=== PATIENT | male | born 1950 | race Caucasian/White ===

== ENCOUNTER 2017-05-01 19:45 | Observation (INO) ==
--- NOTE | 2017-05-01 19:51 | Emergency Department Note ---
Disposition Clinical Impression: Encounter for care of pacemaker Disposition: Admitted As Inpatient Condition: Good Referrals: Janneth Macias, FRAME ASSEMBLER [Primary Care Provider] - Forms: ED Satisfaction Letter, Work/School Release Chest Pain HPI - General Chief Complaint: ED General Medical Stated Complaint: shocked by pacemaker Time Seen by Provider: 05/01/17 19:49 Source: patient, EMS Mode of arrival: EMS Limitations: no limitations Vital Signs Reviewed: Yes Nursing Notes Reviewed: Yes - History of Present Illness HPI Narrative: patient states he took the trash out this evening, and when came in to sit on the couch, his pacemaker fired. he states it only fired one time. he states he felt fine before and after the event. this pacemaker/def was recently place.d his chaplain is Dr Sarabia, in [place]. he states he has not recently been ill. - Related Data Home Medications Medication Instructions Recorded Confirmed Aspirin Enteric Coated [Aspirin EC] 81 mg PO DAILY 12/24/15 05/01/17 Cholecalciferol (Vitamin D3) 10,000 unit PO DAILY 12/24/15 05/01/17 [Vitamin D3] Clopidogrel [Plavix] 75 mg PO DAILY 12/24/15 05/01/17 Fenofibrate Nanocrystallized 145 mg PO HS 12/24/15 05/01/17 [Tricor] Glimepiride [Amaryl] 2 mg PO DAILY 12/24/15 05/01/17 Isosorbide MONOnitrate (24 HR) 60 mg PO DAILY 12/24/15 05/01/17 [Imdur] Losartan [Cozaar] 25 mg PO DAILY 12/24/15 05/01/17 Metoprolol [Lopressor] 25 mg PO BID 12/24/15 05/01/17 Nitroglycerin [Nitrostat] 0.4 mg SL Q5M PRN 12/24/15 05/01/17 OxyCODONE/APAP 5/325 [Percocet 1 each PO Q6HR PRN 12/24/15 05/01/17 5/325 MG] RX: Garlic 300 mg PO DAILY 12/24/15 05/01/17 RX: Mexiletine [Mexitil] 150 mg PO BID 12/24/15 05/01/17 Ranolazine [Ranexa] 1,000 mg PO DAILY 12/24/15 05/01/17 Simvastatin [Zocor] 40 mg PO HS 12/24/15 05/01/17 Sucralfate [Carafate] 1 gm PO QIDAC 12/24/15 05/01/17 Clopidogrel [Plavix] 75 mg PO DAILY 05/01/17 05/01/17 Previous Rx's Medication Instructions Recorded RX: Hydrocortisone 2.5% CREAM 1 appl TP BID #1 tube 03/05/17 [Cortaid] Allergies Allergy/AdvReac Type Severity Reaction Status Date / Time amiodarone Allergy See Verified 05/01/17 19:56 Comments All systems ED: reviewed and negative except as stated. Review of Systems: As Per HPI Chest Pain PMH - Past Medical History Medical history: Reports: arthritis, cardiomyopathy, COPD, coronary artery disease, diabetes, GERD, hyperlipidemia, hypertension, myocardial infarction Surgical history: Reports: angioplasty/stent, pacemaker/AICD, other Psychiatric history: Reports: no psych history - Social History Smoking Status: Current every day smoker Alcohol use: Reports: none Drug use: Reports: none Physical Exam General: NAD, VSS Head: normocephalic, atraumatic Neck: NO CLA, Supple Chest wall: normal rise, no creptius, no deformity noted Lungs: CTAB Heart: RRR, no murmur Abd: soft, nontender, BS normal : deferred MSK: strength equal in all four extremities Ext: moves all four extremities, no obvious deformities Skin: cap refill normal, warm, dry Psych: normal affect, not anxious Course Course Narrative: EKG interpreted by myself as a paced rhythm at a rate of 60 no acute findings 2118 Patient has been monitored here in the department for over an hour he has had the occasional PVC but no dysrhythmia. We will get a call to [employer] to have his pacemaker interrogated that we have not heard back as to when they will be coming to do that. His first troponin and EKG are unrevealing. Discussed with the patient that I do think that he needs to be interrogated tonight. We will try talking first with the hospitalist to keep him here and have the interrogation here. He can be on telemetry and then transferred if needed. 2134: dr beltran agreed to obs patient overnight, as long as we set up the [employer]. [employer] was paged by staff scientist already, waiting for them to call us back. Patient comfortable with plan. Vital Signs Temperature 97.9 F 05/01/17 19:46 Pulse Rate 64 05/01/17 19:46 Respiratory Rate 16 05/01/17 19:46 Blood Pressure 154/80 05/01/17 19:46 O2 Sat by Pulse Oximetry 96 05/01/17 19:46 Temperature 97.9 F 05/01/17 20:07 Pulse Rate 62 05/01/17 20:07 Respiratory Rate 15 05/01/17 20:07 Blood Pressure 142/81 05/01/17 20:07 O2 Sat by Pulse Oximetry 96 05/01/17 20:07 Oxygen Delivery Oxygen Delivery Room Air Chest Pain - Medical Records Medical records reviewed: Yes I reviewed the patient's medical records. - Lab Data Lab results reviewed: Yes I reviewed the patient's lab results. Result diagrams: 05/01/17 20:17 05/01/17 20:17 Lab Results 05/01/17 05/01/17 05/01/17 Range/Units 20:17 20:17 20:17 WBC 9.8 (4.3-11.1) K/mcL RBC 4.56 (4.19-5.50) M/mcL Hgb 15.0 (12.9-16.9) g/dL Hct 42.7 (37.5-50.1) % MCV 93.6 (83.0-100.0) fL MCH 32.9 (28.0-33.3) pg MCHC 35.1 (31.6-35.5) g/dL RDW 13.2 (11.5-14.5) % Plt Count 239 (140-400) K/mcL MPV 10.8 (9.4-12.4) fL Immature Gran % 0.3 (0-4) % Seg Neutrophils % 48.4 % Lymphocytes % 33.9 % Monocytes % 11.7 % Eosinophils % 5.1 % Basophils % 0.6 % Neutrophils # 4.8 (1.6-8.9) K/mcL Lymphocytes # 3.3 (0.6-4.6) K/mcL Monocytes # 1.2 (0.0-1.3) K/mcL Eosinophils # 0.5 (0.0-0.6) K/mcL Basophils # 0.1 (0.0-0.2) K/mcL PT 12.1 (9.4-12.1) Seconds INR 1.1 APTT 31.9 (26.0-36.0) Seconds Sodium 139 (136-145) mEq/L Potassium 4.4 (3.5-4.5) mEq/L Chloride 105 (98-109) mEq/L Carbon Dioxide 24 (19-29) mEq/L BUN 23 (8-26) mg/dL Creatinine 0.89 (0.72-1.25) mg/dL Est GFR ( Amer) > 60 (> 60) Est GFR (Non-Af Amer) > 60 (> 60) BUN/Creatinine Ratio 26 (6-26) Glucose 130 H (70-99) mg/dL Calculated Osmolality 293 (280-300) Calcium 9.9 (8.6-10.8) mg/dL Magnesium (1.6-2.6) mg/dL Troponin I (0-0.03) ng/mL 05/01/17 05/01/17 Range/Units 20:17 20:17 WBC (4.3-11.1) K/mcL RBC (4.19-5.50) M/mcL Hgb (12.9-16.9) g/dL Hct (37.5-50.1) % MCV (83.0-100.0) fL MCH (28.0-33.3) pg MCHC (31.6-35.5) g/dL RDW (11.5-14.5) % Plt Count (140-400) K/mcL MPV (9.4-12.4) fL Immature Gran % (0-4) % Seg Neutrophils % % Lymphocytes % % Monocytes % % Eosinophils % % Basophils % % Neutrophils # (1.6-8.9) K/mcL Lymphocytes # (0.6-4.6) K/mcL Monocytes # (0.0-1.3) K/mcL Eosinophils # (0.0-0.6) K/mcL Basophils # (0.0-0.2) K/mcL PT (9.4-12.1) Seconds INR APTT (26.0-36.0) Seconds Sodium (136-145) mEq/L Potassium (3.5-4.5) mEq/L Chloride (98-109) mEq/L Carbon Dioxide (19-29) mEq/L BUN (8-26) mg/dL Creatinine (0.72-1.25) mg/dL Est GFR ( Amer) (> 60) Est GFR (Non-Af Amer) (> 60) BUN/Creatinine Ratio (6-26) Glucose (70-99) mg/dL Calculated Osmolality (280-300) Calcium (8.6-10.8) mg/dL Magnesium 1.9 (1.6-2.6) mg/dL Troponin I 0.00 (0-0.03) ng/mL - Radiology Data Radiology results reviewed: Yes I reviewed the patient's radiology results. - EKG Data EKG attestation: Yes I reviewed and interpreted this EKG. Heart Score - Score History: Moderately Suspicious EKG: Normal Age: Greater than 65 Risk Factors: 1-2 risk factors Troponin: Less than normal limit HEART Score Total: 4
[2017-05-01] MEDS ORDERED: Aspirin 81 MG TAB.CHEW PO ONE (20:04)
[2017-05-01 20:27] LABS: Basophils # 0.1 K/mcL (0.0-0.2); Basophils % 0.6 %; Eosinophils # 0.5 K/mcL (0.0-0.6); Eosinophils % 5.1 %; Hematocrit 42.7 % (37.5-50.1); Immature Granulocytes % 0.3 % (0-4); Lymphocytes # 3.3 K/mcL (0.6-4.6); Lymphocytes % 33.9 %; Mean Corpuscular HGB Conc 35.1 g/dL (31.6-35.5); Mean Corpuscular Hemoglobin 32.9 pg (28.0-33.3); Mean Corpuscular Volume 93.6 fL (83.0-100.0); Mean Platelet Volume 10.8 fL (9.4-12.4); Monocytes # 1.2 K/mcL (0.0-1.3); Monocytes % 11.7 %; Neutrophils # 4.8 K/mcL (1.6-8.9); Platelet Count 239 K/mcL (140-400); Red Blood Count 4.56 M/mcL (4.19-5.50); Red Cell Distribution Width 13.2 % (11.5-14.5); Segmented Neutrophils % 48.4 %
[2017-05-01 20:33] LABS: INR 1.1; Prothrombin Time 12.1 Seconds (9.4-12.1)
[2017-05-01 20:35] LABS: Activated Partial Thrombo Time 31.9 Seconds (26.0-36.0)
[2017-05-01 20:43] LABS: BUN/Creatinine Ratio 26 (6-26); Blood Urea Nitrogen 23 mg/dL (8-26); Calcium 9.9 mg/dL (8.6-10.8); Carbon Dioxide 24 mEq/L (19-29); Chloride 105 mEq/L (98-109); Glucose 130 mg/dL (70-99); Osmolality,Calculated 293 (280-300); Potassium 4.4 mEq/L (3.5-4.5); Sodium 139 mEq/L (136-145); eGFR For African Americans > 60 (> 60); eGFR For Non-African Americans > 60 (> 60)
[2017-05-01] MEDS ORDERED: Naloxone 0.4 MG/ML INJ IVP PRN (22:08)
[2017-05-01] MEDS ORDERED: Nitroglycerin 0.4 MG TAB.SUBL SL PRN (22:08)
[2017-05-01] MEDS ORDERED: *HR* OxyCODONE/APAP 5/325 TABLET PO PRN (22:08)
[2017-05-02 06:38] VITALS: BP 130/76
[2017-05-02] MEDS: Sucralfate 1 GM TABLET PO SCH ×2 (07:44→08:03)
[2017-05-02 08:47] LABS: BUN/Creatinine Ratio 22 (6-26); Blood Urea Nitrogen 19 mg/dL (8-26); Calcium 9.4 mg/dL (8.6-10.8); Carbon Dioxide 23 mEq/L (19-29); Chloride 107 mEq/L (98-109); Chol/HDL Ratio 5.6 (0-4.9); Cholesterol 151 mg/dL (< 200); Glucose 188 mg/dL (70-99); HDL Cholesterol 27 mg/dL (40-59); LDL Cholesterol,Calculated 55 mg/dL (0-99); Osmolality,Calculated 297 (280-300); Potassium 4.1 mEq/L (3.5-4.5); Sodium 140 mEq/L (136-145); Triglycerides 344 mg/dL (< 150); eGFR For African Americans > 60 (> 60); eGFR For Non-African Americans > 60 (> 60)
[2017-05-02] MEDS ORDERED: GARLIC 300 MG PO SCH (09:00)
[2017-05-02] MEDS ORDERED: Fenofibrate 54 MG TABLET PO SCH ×2 (09:00→21:00)
[2017-05-02] MEDS ORDERED: Aspirin Enteric Coated 81 MG Tablet PO SCH ×2 (09:00→21:00)
[2017-05-02] MEDS ORDERED: Isosorbide MONOnitrate (24 HR) 60 MG TAB.ER.24H PO SCH ×2 (09:00→12:00)
[2017-05-02] MEDS ORDERED: Ranolazine 500 MG TAB.ER.12H PO SCH (09:00)
[2017-05-02] MEDS ORDERED: *HR* Glimepiride 2 MG TABLET PO SCH (09:00)
[2017-05-02] MEDS ORDERED: Cholecalciferol (D-3) 1,000 UNIT TABLET PO SCH (09:00)
[2017-05-02 09:50] LABS: Basophils # 0.1 K/mcL (0.0-0.2); Basophils % 0.6 %; Eosinophils # 0.6 K/mcL (0.0-0.6); Eosinophils % 6.1 %; Hemoglobin 15.4 g/dL (12.9-16.9); Immature Granulocytes % 0.3 % (0-4); Lymphocytes # 2.5 K/mcL (0.6-4.6); Lymphocytes % 26.8 %; Mean Corpuscular HGB Conc 34.2 g/dL (31.6-35.5); Mean Corpuscular Hemoglobin 32.2 pg (28.0-33.3); Mean Corpuscular Volume 94.1 fL (83.0-100.0); Monocytes % 10.7 %; Neutrophils # 5.2 K/mcL (1.6-8.9); Platelet Count 218 K/mcL (140-400); Red Blood Count 4.78 M/mcL (4.19-5.50); Red Cell Distribution Width 13.2 % (11.5-14.5); Segmented Neutrophils % 55.5 %
--- NOTE | 2017-05-02 11:21 | Internal Med History&Physical ---
Date of Encounter: 05/02/17 Time of Encounter: 10:45 Assessment and Plan (1) Defibrillator discharge Current visit: Yes Status: Acute He has been admitted to [facility] floor observation status. He will be monitored on telemetry. Repeat cardiac enzymes were ordered. Internal Medicine - H&P: HPI Chief complaint: Defibrillator shock Admitted From: Home Plans for Post Hospital Care: Home History of present illness: Mr. Goodman is a 67 year old male who came to emergency room stating he had received a single shock from his defibrillator while sitting on his couch at leisure approximately 7 PM. He had no chest pain, lightheadedness or other symptoms prior to the shock. He decided to come to emergency room for further evaluation. He was admitted to [facility] for observation. He reports his present ICD was placed approximately 1 year ago. He had 2 previous defibrillators. He is uncertain of the diagnosis requiring the ICD placements. His last shock was over one year ago prior to implantation of this ICD. He reports a total of 4 shocks since initial ICD placement. He reports a past cardiac ablation procedure done but does not know details. His cardiovascular history significant for hypertension. He has known ASHD status post 4 MIs with most recent OR approximately 2001. He has had a total of 4 stents placed. His last heart catheter was approximately 2013 at [facility] without further intervention done. He has not used Nitrostat in approximately 5 years. He denies heart failure DVT or pulmonary embolus. Past Med Surg Social Fam HX - Past Medical History Medical history: arthritis, cardiomyopathy, COPD, coronary artery disease, diabetes, GERD, hyperlipidemia, hypertension, myocardial infarction Psychiatric history: no psych history - Past Surgical History Surgical History: angioplasty/stent, pacemaker/AICD, other - Social History Smoking Status: Current every day smoker Packs per day: 1 Smokeless Tobacco Status: No Alcohol use: none Drug use: none Internal Medicine - H&P: Meds Aspirin Enteric Coated [Aspirin EC] 81 mg PO DAILY 12/24/15 [History] Cholecalciferol (Vitamin D3) [Vitamin D3] 10,000 unit PO DAILY 12/24/15 [History ] Clopidogrel [Plavix] 75 mg PO DAILY 12/24/15 [History] Fenofibrate Nanocrystallized [Tricor] 145 mg PO HS 12/24/15 [History] Garlic 300 mg PO DAILY 12/24/15 [History] Glimepiride [Amaryl] 2 mg PO DAILY 12/24/15 [History] Isosorbide MONOnitrate (24 HR) [Imdur] 60 mg PO DAILY 12/24/15 [History] Losartan [Cozaar] 25 mg PO DAILY 12/24/15 [History] Metoprolol [Lopressor] 25 mg PO BID 12/24/15 [History] Mexiletine [Mexitil] 150 mg PO BID 12/24/15 [History] Nitroglycerin [Nitrostat] 0.4 mg SL Q5M PRN 12/24/15 [History] OxyCODONE/APAP 5/325 [Percocet 5/325 MG] 1 each PO Q6HR PRN 12/24/15 [History] Ranolazine [Ranexa] 1,000 mg PO DAILY 12/24/15 [History] Simvastatin [Zocor] 40 mg PO HS 12/24/15 [History] Sucralfate [Carafate] 1 gm PO QIDAC 12/24/15 [History] Hydrocortisone 2.5% CREAM [Cortaid] 1 appl TP BID #1 tube 03/05/17 [Rx] Clopidogrel [Plavix] 75 mg PO DAILY 05/01/17 [History] 3 Allergy/AdvReac Type Severity Reaction Status Date / Time amiodarone Allergy See Verified 05/01/17 19:56 Comments All Systems PM: A 10-system review of systems was performed and is negative for pertinent findings except as documented above in the HPI. Review of systems: Gen.: He states his weight has been stable past few months Cardiovascular: As per history of present illness Respiratory: He smoked since age 17 up to 2 packs per day. He has not been diagnosed with chronic lung disease and does not use home oxygen. He has had negative testing for NARDA. GI: He had esophageal stricture dilatation 12/24/2015 and has had no further dysphagia. He has minimal GERD symptoms. He denies disorders of his liver gallbladder or exocrine pancreas. : No history of hematuria dysuria or kidney stones Neurologic: He denies large distribution strokes or seizures. Endocrine: He was diagnosed with DM 2 approximately 5 years ago. He has hyperlipidemia but no known thyroid disease. Hematology/oncology: He denies blood disorders cancers or anemia Psychiatric: He denies anxiety depression or other mental health issues Musk skeletal: He has DJD and chronic low back pain. He denies gout. - Constitutional Vitals: Temp Pulse Resp BP Pulse Ox 97.9 F 59 18 130/76 94 05/02/17 06:34 05/02/17 06:34 05/02/17 06:34 05/02/17 06:34 05/02/17 06:34 Exam: Gen.: He is a well-developed well-nourished male lying quietly in bed who appears in no acute distress HEENT: Head is atraumatic and normocephalic. Eyes: EOMI. There is no scleral icterus. Mouth: Mucosa is moist. Neck: Supple and nontender. There is no thyromegaly or adenopathy noted. Heart: Regular without murmurs gallops or ectopics Lungs: No wheezes or crackles are heard. Abdomen: Soft and nontender. No masses or guarding are noted. Extremities: He has tinea pedis bilaterally. Dorsalis pedis and posterior tibial pulses are trace palpable bilaterally. He has minimal DJD changes of his hands. Neurologic: Mental status: He is talkative and a good historian. Cranial nerves : Smile is symmetric. Forehead wrinkles bilaterally. Tongue protrudes midline. EOMI. Motor: There is no pronator drift. Cerebellar: Finger to nose is intact bilaterally. Skin: Warm and dry. Internal Med - H&P Results - Labs CBC & Chem 7: 05/02/17 08:15 05/02/17 08:15 Labs: Short CBC 05/02/17 Range/Units 08:15 WBC 9.3 (4.3-11.1) K/mcL Hgb 15.4 (12.9-16.9) g/dL Hct 45.0 (37.5-50.1) % Plt Count 218 (140-400) K/mcL Neutrophils # 5.2 (1.6-8.9) K/mcL BMP 05/02/17 08:15 Sodium 140 Potassium 4.1 Chloride 107 Carbon Dioxide 23 BUN 19 Creatinine 0.86 Glucose 188 H Calcium 9.4 Cardiac Enzymes 05/02/17 05/02/17 Range/Units 04:38 08:15 Troponin I 0.01 0.00 (0-0.03) ng/mL
--- NOTE | 2017-05-02 11:35 | Discharge Summary ---
Date of Encounter: 05/02/17 Time of Encounter: 10:45 - Discharge Diagnosis (1) Defibrillator discharge Priority: Primary Status: Acute - Discharge Medications Home Medications: Aspirin Enteric Coated [Aspirin EC] 81 mg PO DAILY 12/24/15 [History] Cholecalciferol (Vitamin D3) [Vitamin D3] 10,000 unit PO DAILY 12/24/15 [History ] Clopidogrel [Plavix] 75 mg PO DAILY 12/24/15 [History] Fenofibrate Nanocrystallized [Tricor] 145 mg PO HS 12/24/15 [History] Garlic 300 mg PO DAILY 12/24/15 [History] Glimepiride [Amaryl] 2 mg PO DAILY 12/24/15 [History] Isosorbide MONOnitrate (24 HR) [Imdur] 60 mg PO DAILY 12/24/15 [History] Losartan [Cozaar] 25 mg PO DAILY 12/24/15 [History] Metoprolol [Lopressor] 25 mg PO BID 12/24/15 [History] Mexiletine [Mexitil] 150 mg PO BID 12/24/15 [History] Nitroglycerin [Nitrostat] 0.4 mg SL Q5M PRN 12/24/15 [History] OxyCODONE/APAP 5/325 [Percocet 5/325 MG] 1 each PO Q6HR PRN 12/24/15 [History] Ranolazine [Ranexa] 1,000 mg PO DAILY 12/24/15 [History] Simvastatin [Zocor] 40 mg PO HS 12/24/15 [History] Hydrocortisone 2.5% CREAM [Cortaid] 1 appl TP BID #1 tube 03/05/17 [Rx] Clopidogrel [Plavix] 75 mg PO DAILY 05/01/17 [History] Allergies/Adverse Reactions: 3 Allergy/AdvReac Type Severity Reaction Status Date / Time amiodarone Allergy See Verified 05/01/17 19:56 Comments Date of admission: 05/01/17 21:39 Primary care physician: Janneth Macias CNP - Patient Status Disposition: Home, Self-Care Condition: Good Functional capacity at discharge: independent ambulation Overall status at discharge: patient is back to baseline - Discharge Instructions Follow Up With: Janneth Macias CNP [Primary Care Provider] - 1 week - Diet and Activity Activity: resume usual activities as tolerated Diet: advance to your usual diet Hospital course: Mr. Goodman is a 67 year old male who came to emergency room stating he had received a single shock from his defibrillator while sitting on his couch at leisure approximately 7 PM. He had no chest pain, lightheadedness or other symptoms prior to the shock. He decided to come to emergency room for further evaluation. He was admitted to [facility] for observation. Initial orders were written by the emergency room physician. I saw him the morning of May 02 and performed a history and physical and discharge. Repeat cardiac enzymes showed no evidence of myocardial damage. The patient remained asymptomatic his entire time of hospitalization. Contact was made with the ICD risk control field representative while patient was in emergency room about doing ICD interrogation during his observation stay. The ER staff was told that field representatives director would come to the hospital morning of May 02 and do the interrogation. However word was received the morning of May 02 that no field representatives director would be able to come to the hospital to perform the interrogation. Patient reported he had device at home used for interrogations on a routine basis. He will be discharged home and contact his cardiology office to receive instructions about doing a home interrogation or returning to the pumper gager's office. I encouraged him to discontinue smoking. He will follow with his PCP and/or pumper gager within 1 week. - Time Spent with Patient Total time spent providing and/or coordinating discharge services: - Constitutional Vitals: Temp Pulse Resp BP Pulse Ox 97.9 F 59 18 130/76 94 05/02/17 06:34 05/02/17 06:34 05/02/17 06:34 05/02/17 06:34 05/02/17 06:34
[2017-05-02] MEDS ORDERED: FLUARIX QUAD 2017-18 36MOS UP/PF 0.5 ML SYRINGE IM ONE (11:43)
--- NOTE | 2017-05-02 16:59 | Electrocardiograph Report ---
[address] [address] Test Date: 2017-05-02 Pat Name: Felix Goodman Department: 9202 Room: [facility] Gender: M Social Scientist: [id number] : 1950 Requested By: Muriel Carcamo Order Number: [id number] Reading MD: Ariana Sethi Measurements Intervals [place] Rate: 67 P: 230 SD: 201 QRS: 20 QRSD: 118 T: 82 QT: 413 QTc: 429 Interpretive Statements ELECTRONIC ATRIAL PACEMAKER PVC'S Electronically Signed On 05-02-2017 16:58:20 EDT by Ariana Sethi
--- NOTE | 2017-05-02 17:01 | Electrocardiograph Report ---
[address] [place], [place] [address] Test Date: 2017-05-01 Pat Name: Felix Goodman Department: [id number] Room: [facility] Gender: M Egg Gatherer: [id number] : 1950 Requested By: Muriel Carcamo Order Number: [id number] Reading MD: Ariana Sethi Measurements Intervals [place] Rate: 60 P: 180 ID: [id number] QRS: 20 QRSD: 109 T: -13 QT: 404 QTc: 404 Interpretive Statements ELECTRONIC ATRIAL PACEMAKER INFERIOR MYOCARDIAL INFARCTION, OF INDETERMINATE AGE Electronically Signed On 05-02-2017 16:59:44 EDT by Ariana Sethi
[2017-05-02] MEDS ORDERED: MEXILETINE 150 MG PO SCH (21:00)
== END 2017-05-02 12:10 | disposition home or self-care (01) ==
LOC: EMEROOPIK 19:45 → INPPIK 19:45
PROVIDERS: ADMIT Internal Medicine; ATTEND Internal Medicine